=== PATIENT | male | born 1970 | race American Indian/Alaskan Native ===

== ENCOUNTER 2018-10-31 00:10 | Inpatient (IN) | payer MEDICAID, OTHER ==
--- NOTE | 2018-10-31 00:22 | Emergency Department Report ---
HPI - General Time Seen by Provider: 10/31/18 00:20 - HPI HPI: 48-year-old often Turkmen male presents to the emergency department, driving himself in to be seen, with complaint of difficulty with speech. The patient says that started about 15 minutes prior to arrival. The patient drove himself in and came to triage. He is diaphoretic with some difficulty speaking and a left-sided facial droop. He has a past medical history of congestive heart failure. He did not take anything for his symptoms prior to arrival. ED Past Medical Hx - Past Medical History Hx Hypertension: Yes Hx Congestive Heart Failure: Yes - Social History Smoking Status: Never Smoker Substance Use Type: Alcohol - Medications Home Medications: Home Medications Medication Instructions Recorded Confirmed Last Taken Type Furosemide [Lasix] 40 mg PO BID 10/31/18 10/31/18 Unknown History ED Review of Systems ROS: Stated complaint: POSS STROKE Other details as noted in HPI Comment: All other systems reviewed and negative Constitutional: diaphoresis. denies: chills, fever Eyes: denies: eye pain, vision change ENT: denies: ear pain, throat pain Respiratory: denies: cough, shortness of breath Cardiovascular: denies: chest pain, palpitations Gastrointestinal: denies: abdominal pain, vomiting Genitourinary: denies: urgency, dysuria Musculoskeletal: denies: back pain, arthralgia Skin: denies: rash, lesions Neurological: other (slurred speech). denies: weakness Physical Exam - Physical Exam Vital Signs: Vital Signs 10/31/18 00:12 Pulse Rate 104 H Blood Pressure 166/109 O2 Sat by Pulse 94 Oximetry Physical Exam: GENERAL: The patient is well-developed well-nourished. HEENT: Normocephalic. Atraumatic. Patient has moist mucous membranes. EYES: Extraocular motions are intact. Pupils are equal and reactive to light bilaterally. NECK: Supple. Trachea is midline. CHEST/LUNGS: Clear to auscultation. There is no respiratory distress noted. HEART/CARDIOVASCULAR: Regular. There is no tachycardia. There is no obvious murmur. ABDOMEN: Abdomen is soft, nontender. Patient has normal bowel sounds. Morbidly obese habitus. SKIN: Patient is diaphoretic. NEURO: The patient is awake, alert, and oriented. The patient is cooperative. No pronator drift or dysmetria. Patient has some mild dysarthria. There is a left-sided nasolabial paresis. MUSCULOSKELETAL: There is no tenderness or deformity. There is no limitation range of motion. There is no evidence of acute injury. ED Course Vital Signs 10/31/18 00:12 Pulse Rate 104 H Blood Pressure 166/109 O2 Sat by Pulse 94 Oximetry - Consultations Consultation #1: I spoke with the neurologist on-call for [facility] for the stroke team, Dr. Bandar De Paz. While we are unable to send the CT images to the on-site radiologist, we are able to send the images to regional PACS where Dr. De Paz was able to take a look at the images. He felt the patient might have a questionable subacute right lacunar caudate infarct. He does not see any acute bleed or any signs of any large vessel occlusion. He felt that the patient's NIH score is low and his symptoms are mild with the facial droop and dysarthria, and does not recommend TPA to be given. He also does not recommend any emergent CT angiography. She feels that the patient should be evaluated for other etiology/conditions and could have an MRI in the morning. 10/31/18 00:38 Consultation #2: 10/31/18 00:44 I spoke with the telemedicine neurologist, Dr. Aburto, who is going to see the patient as well by pvc monitor. 10/31/18 01:22 Patient was seen by Dr. Aburto who says that the patient's symptoms have improved and the patient himself says he is feeling better and back towards his baseline. This appears more consistent with a TIA. He still recommends that the patient get admitted for further evaluation. ED Medical Decision Making - Lab Data Result diagrams: 10/31/18 00:30 10/31/18 00:30 - EKG Data -: EKG Interpreted by Me EKG shows normal: sinus rhythm, axis (left axis deviation), intervals, QRS complexes, ST-T waves (T-wave inversions to the septal leads, flattening of the T waves to the inferior leads) Rate: normal - EKG Data When compared to previous EKG there are: no significant change Interpretation: unchanged when compared t (09/13/18) - Radiology Data Radiology results: report reviewed, image reviewed interpreted by me: Chest x-ray does not show any pneumothorax, pleural effusion, pneumonia or obvious focal consolidation.. Cardiomegaly. PROCEDURE: CT HEAD/BRAIN WO CON TECHNIQUE: Computerized tomography of the head was performed without contrast material. HISTORY: neuro deficits lt; 6hrs or sx present upon awakening COMPARISON: No prior studies are available for comparison. FINDINGS: Skull and scalp: Normal. Paranasal sinuses: Normal. Ventricles and subarachnoid spaces: Normal. Cerebrum: No evidence of hemorrhage, acute infarction or mass . Cerebellum and brainstem: No evidence of hemorrhage, acute infarction or mass. Vasculature: Normal. Comments: None. IMPRESSION: There is no evidence an acute intracranial process. Transcribed By: [facility] Dictated By: THIAGO WEST MD Electronically Authenticated By: THIAGO WEST MD Signed Date/Time: 10/31/18 005 - Medical Decision Making Patient presents to the emergency department with some acute dysarthria and the patient was found to have a left-sided facial droop. CT scan of the head was done that eventually resulted as negative for any acute bleed, shift, mass, ischemia. There was a delay at first obtaining the CT to the radiology service so I spoke with a neurologist at [facility], Dr. Bandar De Paz, who did not feel that the patient required TPA for transfer to their facility. Shortly after this, I also spoke with the telemedicine neurologist, Dr. Aburto, who saw the patient as well and found the patient have improved symptoms and it now seems that the patient had a TIA. He also recommends admission for MRI and further evaluation. Patient's labs have been unremarkable. He does have an elevated proBNP patient has no complaints of any chest pain or shortness of breath and the chest x-ray did not show any pleural effusions or signs of decompensated heart failure. Patient was given a dose of aspirin. All the labs and imaging results as well as the plan for admission, were discussed with the patient and he understands and agrees to the plan. - Differential Diagnosis CVA, TIA, alcohol intoxication, hypoglycemia Critical Care Time: Yes Critical care time in (mins) excluding proc time.: 35 Critical care attestation.: If time is entered above; I have spent that time in minutes in the direct care of this critically ill patient, excluding procedure time. Critical care time was spent on this patient and during his initial evaluation, multiple re- evaluations, ordering interpretation of labs and imaging, discussion with 2 different neurology services. Critical Care Time: 35 minutes ED Disposition Clinical Impression: TIA (transient ischemic attack) Hypertension Qualifiers: Hypertension type: essential hypertension Qualified Code(s): I10 - Essential (primary) hypertension Disposition: OP ADMIT IP TO THIS HOSP Is pt being admited?: Yes Condition: Serious Instructions: Hypertension (ED) Referrals: TATE MUSE MD [Primary Care Provider] - 3-5 Days Time of Disposition: 01:35 - Assessment Assessment Interval: Baseline - Level of Consciousness 1a. Level of Consciousness: alert/keenly responsive - LOC Questions 1b. LOC Questions: answers both correctly - LOC Command 1c. LOC Commands: performs tasks correctly - Best Gaze 2. Best Gaze: normal - Visual 3. Visual: no visual loss - Facial Palsy 4. Facial Palsy: partial paralysis - Motor Arm 5b. Motor Arm Right: no drift 5a. Motor Arm Left: no drift - Motor Leg 6b. Motor Leg Right: no drift 6a. Motor Leg Left: no drift - Limb Ataxia 7. Limb Ataxia: absent - Sensory 8. Sensory: normal - Best Language 9. Best Language: mild/moderate aphasia - Dysarthria 10. Dysarthria: mild/moderate dysarthria - Extinction and Inattention 11. Extinction/Inattention: no abnormality - Scoring Total Score: 4 Stroke Severity: Minor Stroke
[2018-10-31] MEDS ORDERED: ACTIVASE ONE (00:27)
[2018-10-31 00:45] LABS: Basophils # (Auto) 0.1 K/mm3 (0.0-0.1); Basophils % (Auto) 0.8 % (0.0-1.8); Eosinophils # (Auto) 0.2 K/mm3 (0.0-0.4); Eosinophils % (Auto) 2.8 % (0.0-4.3); Hematocrit 43.9 % (35.5-45.6); Hemoglobin 14.2 gm/dl (11.8-15.2); Lymphocytes # (Auto) 1.7 K/mm3 (1.2-5.4); Lymphocytes % (Auto) 23.7 % (13.4-35.0); Mean Corpuscular HGB Conc 32 % (32-34); Mean Corpuscular Volume 84 fl (84-94); Monocytes # (Auto) 0.5 K/mm3 (0.0-0.8); Monocytes % (Auto) 7.7 % (0.0-7.3); Platelet Count 272 K/mm3 (140-440); Red Cell Distribution Width 16.5 % (13.2-15.2)
--- NOTE | 2018-10-31 00:53 | Cat Scan Report ---
FINAL REPORT PROCEDURE: CT HEAD/BRAIN WO CON TECHNIQUE: Computerized tomography of the head was performed without contrast material. HISTORY: neuro deficits <6hrs or sx present upon awakening COMPARISON: No prior studies are available for comparison. FINDINGS: Skull and scalp: Normal. Paranasal sinuses: Normal. Ventricles and subarachnoid spaces: Normal. Cerebrum: No evidence of hemorrhage, acute infarction or mass . Cerebellum and brainstem: No evidence of hemorrhage, acute infarction or mass. Vasculature: Normal. Comments: None. IMPRESSION: There is no evidence an acute intracranial process.
[2018-10-31 00:56] LABS: INR 1.05 (0.87-1.13)
[2018-10-31 00:57] LABS: Partial Thromboplastin Time 28.7 Sec. (24.2-36.6); Thrombin Time 16.4 Sec. (15.1-19.6)
[2018-10-31] MEDS ORDERED: BABY ASPIRIN PO ONE (00:58)
[2018-10-31 00:59] LABS: BUN/Creatinine Ratio 21; Blood Urea Nitrogen 29 mg/dL (9-20); Calcium 8.3 mg/dL (8.4-10.2); Hemolysis Index 17
--- NOTE | 2018-10-31 01:28 | XRay Report ---
FINAL REPORT PROCEDURE: XR CHEST 1V AP TECHNIQUE: Chest radiograph anteroposterior view. CPT 18733 HISTORY: weakness COMPARISON: 09/13/2018 FINDINGS: Heart: Heart size is enlarged but stable. Mediastinum/Vessels: Normal. Lungs/Pleural space: Normal. Bony thorax: No acute osseous abnormality. Life support devices: None. IMPRESSION: There is no evidence of acute infiltrate or effusion. Stable cardiomegaly.
[2018-10-31] MEDS ORDERED: SODIUM CHLORIDE FLUSH SYRINGE 10 ML IV PRN (02:10)
[2018-10-31] MEDS ORDERED: MILK OF MAGNESIA PO PRN (02:10)
[2018-10-31] MEDS ORDERED: DULCOLAX PR PRN (02:10)
[2018-10-31] MEDS ORDERED: TYLENOL PO PRN (02:10)
[2018-10-31] MEDS ORDERED: REGLAN PO PRN (02:10)
[2018-10-31] MEDS ORDERED: ZOFRAN IV PRN (02:10)
--- NOTE | 2018-10-31 02:24 | History and Physical Report ---
History of Present Illness Date of examination: 10/31/18 History of present illness: 48-year-old man with a history of hypertension, CHF class emergency room with complaint of not being able to talk. The symptoms happen while he was at the club. He drove himself to the emergency room and 45 minutes later he was able t o sleep. While he was in the emergency room, he is right hand became weak. He has not taken any medications in 3 weeks Review of systems Constitutional: no weight loss, chills, fever Ears, eyes, nose, mouth and throat: no nasal congestion, no nasal discharge, no sinus pressure, no vision change, no red eye. Neck: No neck pain or rigidity. Cardiovascular: no palpitations, chest pain Respiratory: no cough, shortness of breath Gastrointestinal: no hematochezia, abdominal pain Genitourinary : no frequency , no hematuria Musculoskeletal: no joint swelling or muscle ache Integumentary: no rash, no pruritis Neurological: no parathesias Endocrine: no cold or heat intolerance, no polyuria or polydipsia Hematologic/Lymphatic: no easy bruising, no easy bleeding, no gland swelling Allergic/Immunologic: no urticaria, no angioedema. PAST MEDICAL HISTORY: hypertension, CHF PAST SURGICAL HISTORY: leg surgery SOCIAL HISTORY: + alcohol, no drugs, tobacco FAMILY HISTORY: Hypertension Medications and Allergies Allergies Allergy/AdvReac Type Severity Reaction Status Date / Time No Known Allergies Allergy Verified 09/13/18 16:08 Home Medications Medication Instructions Recorded Confirmed Last Taken Type Furosemide [Lasix] 40 mg PO BID 10/31/18 10/31/18 Unknown History Active Meds: Active Medications Acetaminophen (Tylenol) 650 mg PO Q4H PRN PRN Reason: Pain, Mild (1-3) Aspirin (Aspirin) 325 mg PO QDAY SINDI Atorvastatin Calcium (Lipitor) 40 mg PO QHS SINDI Bisacodyl (Dulcolax) 10 mg FL QDAY PRN PRN Reason: Constipation Furosemide (Lasix) 40 mg PO QDAY SINDI Magnesium Hydroxide (Milk Of Magnesia) 30 ml PO Q4H PRN PRN Reason: Constipation Metoclopramide HCl (Reglan) 10 mg PO Q6H PRN PRN Reason: Nausea And Vomiting Ondansetron HCl (Zofran) 4 mg IV Q8H PRN PRN Reason: Nausea And Vomiting Sodium Chloride (Sodium Chloride Flush Syringe 10 Ml) 10 ml INJ PRN PRN PRN Reason: LINE FLUSH Exam - Physical Exam Narrative exam: General Apperance: The patient lying in bed, breathing comfortable HEENT: Normocephalic, atraumatic. Pupils equally round and reactive to light, EOMI, no sclericterus or JVD or thyromegaly or nodule. , no carotid bruit, mucous membranes moist, no exudate or erythema Heart: S1-S2, regular is rhythm Lungs: Clear to auscultation bilaterally, breathing comfortable Abdomen: Positive bowel sounds, soft, nontender, nondistended, no organomegaly Extremities: + edema, no cyanosis clubbing Skin: no rash, nodule, warm and dry Neuro: cranial nerves 2-12 intact, speech is fluent, LUE 4/5, no sensory intact - Constitutional Vitals: Temp Pulse Resp BP Pulse Ox 98 F 95 H 26 H 151/76 98 10/31/18 00:38 10/31/18 01:15 10/31/18 01:15 10/31/18 01:15 10/31/18 01:15 Results - Labs CBC & Chem 7: 10/31/18 00:30 10/31/18 00:30 Labs: Abnormal lab results 10/31/18 10/31/18 10/31/18 Range/Units 00:30 00:30 00:30 RBC 5.20 H (3.65-5.03) M/mm3 MCH 27 L (28-32) pg RDW 16.5 H (13.2-15.2) % [place] % (Auto) 7.7 H (0.0-7.3) % Carbon Dioxide 19 L (22-30) mmol/L BUN 29 H (9-20) mg/dL Glucose 118 H (75-100) mg/dL Calcium 8.3 L (8.4-10.2) mg/dL NT-Pro-B Natriuret Pep 4767 H (0-450) pg/mL Plasma/Serum Alcohol (0-0.07) % 10/31/18 Range/Units 00:30 RBC (3.65-5.03) M/mm3 MCH (28-32) pg RDW (13.2-15.2) % [place] % (Auto) (0.0-7.3) % Carbon Dioxide (22-30) mmol/L BUN (9-20) mg/dL Glucose (75-100) mg/dL Calcium (8.4-10.2) mg/dL NT-Pro-B Natriuret Pep (0-450) pg/mL Plasma/Serum Alcohol 0.16 H (0-0.07) % - Imaging and Cardiology Chest x-ray: report reviewed CT Scan - head: report reviewed Assessment and Plan Assessment Acute CVA Hypertension CHF, stable Plan Admit to medicine Obtain MRI of the head and neck, echo Do neurochecks, swallow screen Start aspirin, statin [facility] neurology, physical and occupational therapy Start Lasix, DVT prophylaxis
[2018-10-31] MEDS: APRESOLINE IV PRN ×3 (03:51→14:30)
[2018-10-31] MEDS ORDERED: LASIX PO SCH (10:00)
[2018-10-31] MEDS: ASPIRIN PO SCH (10:00)
--- NOTE | 2018-10-31 10:34 | Progress Note ---
Subjective Date of service: 10/31/18 Interval history: see my extensive note on this patient there is negative CT see blood alcohol level this could well explain slurred speech the CHF being assessed can not rule out TIA at thi point Objective - Vital Sign Vital Signs - 12hr 10/31/18 10/31/18 10/31/18 00:12 00:30 00:38 Temperature 98 F Pulse Rate 104 H 98 H 104 H Respiratory 27 H 20 Rate Blood Pressure 166/109 140/98 Blood Pressure 166/109 [Left] O2 Sat by Pulse 94 96 94 Oximetry 10/31/18 10/31/18 10/31/18 00:45 01:01 01:15 Temperature Pulse Rate 94 H 90 95 H Respiratory 14 18 26 H Rate Blood Pressure 142/86 151/76 151/76 Blood Pressure [Left] O2 Sat by Pulse 95 95 98 Oximetry 10/31/18 10/31/18 10/31/18 01:31 02:00 02:30 Temperature Pulse Rate 93 H 90 87 Respiratory 20 31 H 27 H Rate Blood Pressure 167/117 148/106 149/105 Blood Pressure [Left] O2 Sat by Pulse 99 93 96 Oximetry 10/31/18 10/31/18 10/31/18 03:00 03:30 03:51 Temperature Pulse Rate 85 87 87 Respiratory 25 H 26 H Rate Blood Pressure 147/108 159/116 159/116 Blood Pressure [Left] O2 Sat by Pulse 97 97 Oximetry 10/31/18 10/31/18 10/31/18 04:00 04:04 04:11 Temperature Pulse Rate 89 90 92 H Respiratory 30 H 30 H Rate Blood Pressure 148/103 148/103 Blood Pressure [Left] O2 Sat by Pulse 96 99 Oximetry 10/31/18 10/31/18 04:30 08:17 Temperature 98.1 F 97.6 F Pulse Rate 90 90 Respiratory 16 20 Rate Blood Pressure 165/117 165/112 Blood Pressure [Left] O2 Sat by Pulse 99 99 Oximetry - Laboratory Findings CBC and BMP: 10/31/18 00:30 10/31/18 00:30 Abnormal Lab Findings: Abnormal Labs 10/31/18 10/31/18 10/31/18 00:30 00:30 00:30 RBC 5.20 H MCH 27 L RDW 16.5 H [place] % (Auto) 7.7 H Carbon Dioxide 19 L BUN 29 H Glucose 118 H Calcium 8.3 L NT-Pro-B Natriuret Pep 4767 H Plasma/Serum Alcohol 10/31/18 00:30 RBC MCH RDW [place] % (Auto) Carbon Dioxide BUN Glucose Calcium NT-Pro-B Natriuret Pep Plasma/Serum Alcohol 0.16 H
--- NOTE | 2018-10-31 10:56 | Consultation ---
HISTORY OF PRESENT ILLNESS: This is a 48-year-old black male that presented to the Emergency Room of [facility] after driving himself to be seen. He presents with complaints of difficulty with speaking. The patient had onset of symptoms about 50 minutes prior to admission. He has a prior medical history of congestive heart failure. When he presented to the hospital, his blood pressure was 166/109 and he was noted to be on initial examination, the EKG was normal. The patient had a CT scan of the head, which showed no acute. DICTATION ENDS HERE. JOB# [id number] ENA/MACHELLE
[2018-10-31] MEDS: NORVASC PO SCH (17:07)
[2018-10-31] MEDS: ZESTRIL PO SCH (17:07)
[2018-11-01 04:25] LABS: Chol/HDL Ratio 3.81 %
--- NOTE | 2018-11-01 09:39 | Progress Note ---
Subjective Date of service: 11/01/18 Interval history: PATIENT IS BETTER NO MORE SLURRED SPEECH THE echo Results are noted no clot mri is pending explained the dx to the patient and advised better bp control be pursuerd Objective - Vital Sign Vital Signs - 12hr 10/31/18 11/01/18 11/01/18 23:11 01:00 04:01 Temperature 97.5 F L 97.4 F L Pulse Rate 89 91 H 84 Respiratory 16 14 Rate Blood Pressure 124/80 141/86 O2 Sat by Pulse 98 95 Oximetry 11/01/18 04:11 Temperature Pulse Rate 82 Respiratory Rate Blood Pressure O2 Sat by Pulse Oximetry - Laboratory Findings CBC and BMP: 10/31/18 00:30 10/31/18 00:30 Abnormal Lab Findings: Abnormal Labs 10/31/18 10/31/18 10/31/18 00:30 00:30 00:30 RBC 5.20 H MCH 27 L RDW 16.5 H [place] % (Auto) 7.7 H Carbon Dioxide 19 L BUN 29 H Glucose 118 H Calcium 8.3 L NT-Pro-B Natriuret Pep 4767 H HDL Cholesterol Plasma/Serum Alcohol 10/31/18 11/01/18 00:30 02:48 RBC MCH RDW [place] % (Auto) Carbon Dioxide BUN Glucose Calcium NT-Pro-B Natriuret Pep HDL Cholesterol 37 L Plasma/Serum Alcohol 0.16 H
--- NOTE | 2018-11-01 11:02 | Progress Note ---
Assessment and Plan Assessment and plan: 48-year-old man who presents with slurred speech and transient left upper extremity weakness. The patient had been in a nightclub drinking, when his symptoms started. He drove himself to the ED because his speech was slurred and he had intermittent weakness in his left arm. All symptoms have now resolved. The patient admitted that he had not taken any of his medications for 3 days Plan Neurologist consult appreciated, awaiting MRI Optimize blood pressure medications, patient was on adherence, has been counseled on improved adherence to blood pressure medications -Obtain stress test, patient denies chest pain. This is for cardiac risk stratification given CHF, cont lasix -Follow-up carotid Dopplers -Alcohol intoxication may have contributed to slurred speech Diagnoses TIA? Alcohol intoxication Hypertensive urgency My adherence to medications CHF, EF 45% History Interval history: Review of systems Constitutional: No fevers, no malaise, no joint pains CVS: No chest pain, no orthopnea, no dyspnea on exertion, no pedal edema GI: No abdominal pain, no diarrhea, no vomiting, no constipation Respiratory: No shortness of breath, no wheezing, no coughing Hospitalist Physical - Physical exam Narrative exam: General.: Appears well, no distress, nontoxic HEENT: Moist mucous membranes, extraocular muscles intact, no lymphadenopathy Neck: supple Cardiac: S1-S2 heard Lungs: clear to auscultation bilaterally Abdomen: soft , nontender, nondistended, bowel sounds positive Extremities: bipedal edema Skin: no rash or lesions Neurologic: no gross focal deficits Psych: calm, and cooperative - Constitutional Vitals: Temp Pulse Resp BP Pulse Ox 97.4 F L 82 14 141/86 96 11/01/18 04:01 11/01/18 04:11 11/01/18 04:01 11/01/18 04:01 11/01/18 10:00 Results - Labs CBC & Chem 7: 10/31/18 00:30 10/31/18 00:30 Labs: Laboratory Last Values WBC 7.0 K/mm3 (4.5-11.0) 10/31/18 00:30 RBC 5.20 M/mm3 (3.65-5.03) H 10/31/18 00:30 Hgb 14.2 gm/dl (11.8-15.2) 10/31/18 00:30 Hct 43.9 % (35.5-45.6) 10/31/18 00:30 MCV 84 fl (84-94) 10/31/18 00:30 MCH 27 pg (28-32) L 10/31/18 00:30 MCHC 32 % (32-34) 10/31/18 00:30 RDW 16.5 % (13.2-15.2) H 10/31/18 00:30 Plt Count 272 K/mm3 (140-440) 10/31/18 00:30 Lymph % (Auto) 23.7 % (13.4-35.0) 10/31/18 00:30 [place] % (Auto) 7.7 % (0.0-7.3) H 10/31/18 00:30 Eos % (Auto) 2.8 % (0.0-4.3) 10/31/18 00:30 Baso % (Auto) 0.8 % (0.0-1.8) 10/31/18 00:30 Lymph # 1.7 K/mm3 (1.2-5.4) 10/31/18 00:30 [place] # 0.5 K/mm3 (0.0-0.8) 10/31/18 00:30 Eos # 0.2 K/mm3 (0.0-0.4) 10/31/18 00:30 Baso # 0.1 K/mm3 (0.0-0.1) 10/31/18 00:30 Seg Neutrophils % 65.0 % (40.0-70.0) 10/31/18 00:30 Seg Neutrophils # 4.6 K/mm3 (1.8-7.7) 10/31/18 00:30 PT 14.1 Sec. (12.2-14.9) 10/31/18 00:30 INR 1.05 (0.87-1.13) 10/31/18 00:30 APTT 28.7 Sec. (24.2-36.6) 10/31/18 00:30 Thrombin Time 16.4 Sec. (15.1-19.6) 10/31/18 00:30 Sodium 138 mmol/L (137-145) 10/31/18 00:30 Potassium 3.9 mmol/L (3.6-5.0) 10/31/18 00:30 Chloride 105.5 mmol/L (98-107) 10/31/18 00:30 Carbon Dioxide 19 mmol/L (22-30) L 10/31/18 00:30 Anion Gap 17 mmol/L 10/31/18 00:30 BUN 29 mg/dL (9-20) H 10/31/18 00:30 Creatinine 1.4 mg/dL (0.8-1.5) 10/31/18 00:30 Estimated GFR > 60 ml/min 10/31/18 00:30 BUN/Creatinine Ratio 21 % 10/31/18 00:30 Glucose 118 mg/dL (75-100) H 10/31/18 00:30 POC Glucose 93 (70-105) 10/31/18 00:18 Calcium 8.3 mg/dL (8.4-10.2) L 10/31/18 00:30 Troponin T < 0.010 ng/mL (0.00-0.029) 10/31/18 00:30 NT-Pro-B Natriuret Pep 4767 pg/mL (0-450) H 10/31/18 00:30 Triglycerides 99 mg/dL (2-149) 11/01/18 02:48 Cholesterol 141 mg/dL (50-199) 11/01/18 02:48 LDL Cholesterol Direct 101 mg/dL (50-130) 11/01/18 02:48 HDL Cholesterol 37 mg/dL (40-59) L 11/01/18 02:48 Cholesterol/HDL Ratio 3.81 % 11/01/18 02:48 Plasma/Serum Alcohol 0.16 % (0-0.07) H 10/31/18 00:30
[2018-11-01] MEDS: ASPIRIN PO SCH (13:15)
[2018-11-01] MEDS: NORVASC PO SCH (13:15)
[2018-11-01] MEDS: ZESTRIL PO SCH (13:17)
--- NOTE | 2018-11-01 18:05 | Vascular Lab Report ---
FINAL REPORT EXAM: VL CAROTID DUPLEX BILAT HISTORY: LUE weakness COMPARISON: None available. TECHNIQUE: Several real-time grayscale and color Doppler images were obtained. FINDINGS: On the right, peak systolic velocity within the common carotid artery 72 centimeters/second, internal carotid artery 60, external carotid artery 84. On the left, peak systolic velocity within the common carotid artery 75 centimeters/second, internal carotid artery 73, external carotid artery 42. Antegrade flow within the vertebral arteries. No calcified plaque demonstrated along the carotid vasc ulature. No focal stenosis or occlusion. IMPRESSION: Negative study. No hemodynamically significant plaque formation within the extracranial carotid vascu lature by velocity criteria or NASCET criteria.
[2018-11-01] MEDS: LASIX PO SCH (21:44)
[2018-11-02] MEDS ORDERED: LEXISCAN IV ONE (08:22)
--- NOTE | 2018-11-02 10:18 | Discharge Summary ---
Providers - Providers Date of Admission: 10/31/18 02:10 Attending physician: ALICIA BAUTISTA MD 10/31/18 Consult to Physician [CONS] Routine Comment: Consulting Provider: TATE BEATTY Physician Instructions: Reason For Exam: cva 10/31/18 02:10 Occupational Therapy Evaluate and Treat [CONS] Routine Comment: Reason For Exam: Neuro deficits Physical Therapy Evaluation and Treat [CONS] Routine Comment: Reason For Exam: Neuro deficits Primary care physician: TAET MUSE Hospitalization Condition: Serious Pertinent studies: MRI brain; Small patchy area of restricted diffusion seen posterior superior aspect right frontal lobe as described consistent with acute ischemic infarction Hospital course: 48-year-old man who presents with slurred speech and transient left upper extremity weakness. The patient had been in a nightclub drinking, when his symptoms started. He drove himself to the ED because his speech was slurred and he had intermittent weakness in his left arm. All symptoms have now resolved. The patient admitted that he had not taken any of his medications for 3 days Hospital course he was counseled about improved adherence to blood pressure medications -His echo showed decreased EF, he went on to have a stress test that was negative, he received cardiology consultation were agreed with the management -His medications were optimized for hypertension and CHF -MRI of brain was done and showed a small acute infarction. His medications were optimized for secondary prevention, he was started on aspirin and statin, and counseled on adherence to blood pressure medications Diagnoses Acute CVA Alcohol intoxication Hypertensive urgency non adherence to medications CHF, EF 45% Disposition: DC-01 TO HOME OR SELFCARE Time spent for discharge: 44 mins Core Measure Documentation - Palliative Care Palliative Care/ Comfort Measures: Not Applicable - Core Measures Any of the following diagnoses?: heart failure, stroke - Heart Failure Discharge Requirements FLASH/ARB for LVSD if EF <40%: Yes Beta ganesh at discharge: Yes - Stroke Discharge Requirements Statin for LDL = or >70 mg/dl on DC: Yes Anticoag for atrial fib/atrial flutter: Not Applicable Antithrombotic for ischemic stroke: Yes Exam - Constitutional Vitals: Temp Pulse Resp BP Pulse Ox 97.9 F 86 20 146/101 97 11/02/18 08:03 11/02/18 08:03 11/02/18 08:03 11/02/18 08:03 11/02/18 08:03 General appearance: Present: no acute distress, well-nourished - EENT Eyes: Present: PERRL ENT: hearing intact, clear oral mucosa - Neck Neck: Present: supple, normal ROM - Respiratory Respiratory effort: normal Respiratory: bilateral: CTA - Cardiovascular Heart Sounds: Present: S1 & S2. Absent: rub, click - Extremities Extremities: pulses symmetrical, No edema Peripheral Pulses: within normal limits - Abdominal General gastrointestinal: Present: soft, non-tender, non-distended, normal bowel sounds Male genitourinary: Present: normal - Integumentary Integumentary: Present: clear, warm, dry - Musculoskeletal Musculoskeletal: gait normal, strength equal bilaterally - Psychiatric Psychiatric: appropriate mood/affect, intact judgment & insight - Neurologic Neurologic: CNII-XII intact, moves all extremities Plan Follow up with: TATE MUSE MD [Primary Care Provider] - 3-5 Days Prescriptions: Pravastatin [Pravachol] 20 mg PO QHS #30 tablet amLODIPine [Norvasc] 10 mg PO QDAY #30 tablet Aspirin EC [Aspirin Enteric Coated TAB] 81 mg PO QDAY #30 tablet. Carvedilol 12.5 mg PO BID #60 tablet Furosemide [Lasix TAB] 40 mg PO BID #60 tablet Lisinopril [Zestril TAB] 40 mg PO QDAY #30 tablet
[2018-11-02] MEDS: LASIX PO SCH ×2 (11:22→21:55)
[2018-11-02] MEDS: ASPIRIN PO SCH (11:22)
[2018-11-02] MEDS: ZESTRIL PO SCH (11:22)
[2018-11-02] MEDS: NORVASC PO SCH (11:23)
[2018-11-02] MEDS ORDERED: ATIVAN IV NR (12:30)
--- NOTE | 2018-11-02 17:23 | Treadmill Report ---
Pharmacologic myocardial perfusion imaging report. A 48-year-old gentleman was evaluated for chest pain. Baseline EKG showed sinus rhythm and minor nonspecific ST-T changes. The patient received 0.4 mg of IV regadenoson intravenously. The patient tolerated IV regadenoson well. No significant EKG changes from baseline. No significant arrhythmia noted. The patient received resting myocardial perfusion images with technetium pyrophosphate and subsequently after vasodilation with IV regadenoson myocardial perfusion images were obtained and stress gated images also were obtained. Stress myocardial perfusion images showed evidence of mild diffuse anterior wall defect, which is more or less noted also in the resting images similarly mild inferior defect was noted in the resting images, which were also noted in the rest images. Gated images showed dilated left ventricle with severe diffuse hypokinesis. Calculated left ventricular ejection fraction was found to be 27%. Transient ischemic dilation ratio was found to be 1.12. FINAL IMPRESSION: 1. The patient tolerated IV Lexiscan well with no EKG changes of chest pain. 2. Mild fixed anterior and inferior defects noted with no significant ischemia noted. 3. Dilated left ventricle with diffuse hypokinesis with calculated ejection fraction of 27% noted. 4. Considering low ejection fraction this study represents high risk for cardiovascular events. [facility]# [id number] ABBY/MACHELLE
--- NOTE | 2018-11-02 19:27 | Magnetic Resonance Report ---
FINAL REPORT PROCEDURE: MR BRAIN WO CON TECHNIQUE: Magnetic resonance imaging of the brain was performed without contrast material. HISTORY: stroke COMPARISON: Prior unenhanced CT scan of the brain 10/31/2018 FINDINGS: There is no evidence of intracranial hemorrhage. No parenchymal hemorrhage, mass lesions or mass effe ct are seen. There is a subtle patchy area of increased T2 signal visualized posteriorly superiorly i n the right frontal lobe. This shows bright patchy increased signal on the diffusion-weighted image a nd decreased signal on the ADC mapping sequence. This is best visualized on the diffusion-weighted im age 26 series 4 and adjacent images. The appearance is consistent with acute ischemic infarction. Thi s extends transversely approximately 1.8 centimeter and anterior to posterior approximately 1.2 centi meter. No other abnormal areas of restricted diffusion are seen. The ventricles are normal size and a re midline. No abnormal extra-axial fluid collections or masses are identified. Normal frances-white mat ter differentiation is otherwise visualized. The corpus callosum, the region of the pituitary fossa i n the foramina magnum show no abnormalities. Patchy mucosal disease seen in multiple trace mucosal thickening seen in the right and left maxillary sinuses. Paranasal sinuses otherwise are clear. Mastoid air cells are clear. Ethmoid air cells. IMPRESSION: Small patchy area of restricted diffusion seen posterior superior aspect right frontal lobe as descri bed consistent with acute ischemic infarction. No hemorrhage or mass effect is seen. MRI of the brain otherwise unremarkable. Critical value: I discussed these findings in detail with JOAQUIM Frias by phone conversation on 11/02/2018 at 7:22 p.m. Eastern standard time.
--- NOTE | 2018-11-02 19:34 | Magnetic Resonance Report ---
FINAL REPORT PROCEDURE: MR MRA/MRV HEAD WO CON TECHNIQUE: Axial 3-D [id number] MR angiography of the [place] and brain was performed. The source images were reconstructed in various views using maximum intensity projection. HISTORY: stroke COMPARISON: No prior studies are available for comparison. FINDINGS: Today's study is limited by motion artifact. Right vertebral artery is dominant, normal variant. Basilar artery is tortuous otherwise appears wide ly patent. Posterior cerebral arteries appear widely patent. The visualized internal carotid arteries and carotid siphons appear widely patent. The A1 segments and anterior cerebral arteries as well as the middle cerebral arteries appear patent. No high-grade areas of stenosis or occlusion are visualiz ed. No changes to suggest aneurysm or vascular malformation. IMPRESSION: Study is limited by motion artifact. The anterior and the posterior circulation appear intact.
--- NOTE | 2018-11-02 20:13 | Treadmill Report ---
SINGLE ISOTOPE DUAL STUDY MYOCARDIAL PERFUSION SCAN REFERRING PHYSICIAN: Albin Galloway M.D., hospitalist. Seen and dictated by Dr. Amarjit Cerratomabel. The patient received 10 mCi of technetium 99m Myoview intravenously. Resting myocardial perfusion scan images were done. After the administration of intravenous Lexiscan, the patient underwent stress myocardial perfusion scan images. The post-stress images revealed mildly dilated left ventricle. Mild transient ischemic dilatation of the left ventricle was seen in the stress images (TID ratio of 1.12). A small mild mid inferior wall perfusion defect was seen. Resting images again revealed perfusion defect seen in the stress images. Gated study revealed mildly dilated left ventricle with severely decreased left ventricular ejection fraction of 27%. CONCLUSION: 1. Mildly dilated left ventricle. 2. Mild transient ischemic dilatation of left ventricle and the stress images with TID ratio of 1.12. 3. Small mild fixed mid inferior wall perfusion defect. 4. Severe global left ventricular systolic dysfunction with LVEF around 27% (dilated cardiomyopathy). JOB# [id number] [facility]
[2018-11-03] MEDS: APRESOLINE IV PRN (01:09)
[2018-11-03 08:48] VITALS: BP 150/106
[2018-11-03] MEDS: LASIX PO SCH (09:47)
[2018-11-03] MEDS: NORVASC PO SCH (09:47)
[2018-11-03] MEDS: ASPIRIN PO SCH (09:47)
[2018-11-03] MEDS: ZESTRIL PO SCH (09:47)
--- NOTE | 2018-11-03 10:18 | Progress Note ---
Assessment and Plan Assessment and plan: 48-year-old man who presents with slurred speech and transient left upper extremity weakness. The patient had been in a nightclub drinking, when his symptoms started. He drove himself to the ED because his speech was slurred and he had intermittent weakness in his left arm. All symptoms have now resolved. The patient admitted that he had not taken any of his medications for 3 days Plan Neurologist consult appreciated, awaiting MRI Optimize blood pressure medications, patient was on adherence, has been counseled on improved adherence to blood pressure medications -Obtain stress test, patient denies chest pain. This is for cardiac risk stratification given CHF, cont lasix -Follow-up carotid Dopplers -Alcohol intoxication may have contributed to slurred speech Diagnoses TIA? Alcohol intoxication Hypertensive urgency My adherence to medications CHF, EF 45% History Interval history: Review of systems Constitutional: No fevers, no malaise, no joint pains CVS: No chest pain, no orthopnea, no dyspnea on exertion, no pedal edema GI: No abdominal pain, no diarrhea, no vomiting, no constipation Respiratory: No shortness of breath, no wheezing, no coughing Hospitalist Physical - Physical exam Narrative exam: General.: Appears well, no distress, nontoxic HEENT: Moist mucous membranes, extraocular muscles intact, no lymphadenopathy Neck: supple Cardiac: S1-S2 heard Lungs: clear to auscultation bilaterally Abdomen: soft , nontender, nondistended, bowel sounds positive Extremities: bipedal edema Skin: no rash or lesions Neurologic: no gross focal deficits Psych: calm, and cooperative - Constitutional Vitals: Temp Pulse Resp BP Pulse Ox 98.4 F 89 20 150/106 97 11/03/18 08:47 11/03/18 08:47 11/03/18 08:47 11/03/18 08:47 11/03/18 08:47 General appearance: Present: no acute distress, well-nourished Results - Labs CBC & Chem 7: 10/31/18 00:30 10/31/18 00:30 Labs: Laboratory Last Values WBC 7.0 K/mm3 (4.5-11.0) 10/31/18 00:30 RBC 5.20 M/mm3 (3.65-5.03) H 10/31/18 00:30 Hgb 14.2 gm/dl (11.8-15.2) 10/31/18 00:30 Hct 43.9 % (35.5-45.6) 10/31/18 00:30 MCV 84 fl (84-94) 10/31/18 00:30 MCH 27 pg (28-32) L 10/31/18 00:30 MCHC 32 % (32-34) 10/31/18 00:30 RDW 16.5 % (13.2-15.2) H 10/31/18 00:30 Plt Count 272 K/mm3 (140-440) 10/31/18 00:30 Lymph % (Auto) 23.7 % (13.4-35.0) 10/31/18 00:30 [place] % (Auto) 7.7 % (0.0-7.3) H 10/31/18 00:30 Eos % (Auto) 2.8 % (0.0-4.3) 10/31/18 00:30 Baso % (Auto) 0.8 % (0.0-1.8) 10/31/18 00:30 Lymph # 1.7 K/mm3 (1.2-5.4) 10/31/18 00:30 [place] # 0.5 K/mm3 (0.0-0.8) 10/31/18 00:30 Eos # 0.2 K/mm3 (0.0-0.4) 10/31/18 00:30 Baso # 0.1 K/mm3 (0.0-0.1) 10/31/18 00:30 Seg Neutrophils % 65.0 % (40.0-70.0) 10/31/18 00:30 Seg Neutrophils # 4.6 K/mm3 (1.8-7.7) 10/31/18 00:30 PT 14.1 Sec. (12.2-14.9) 10/31/18 00:30 INR 1.05 (0.87-1.13) 10/31/18 00:30 APTT 28.7 Sec. (24.2-36.6) 10/31/18 00:30 Thrombin Time 16.4 Sec. (15.1-19.6) 10/31/18 00:30 Sodium 138 mmol/L (137-145) 10/31/18 00:30 Potassium 3.9 mmol/L (3.6-5.0) 10/31/18 00:30 Chloride 105.5 mmol/L (98-107) 10/31/18 00:30 Carbon Dioxide 19 mmol/L (22-30) L 10/31/18 00:30 Anion Gap 17 mmol/L 10/31/18 00:30 BUN 29 mg/dL (9-20) H 10/31/18 00:30 Creatinine 1.4 mg/dL (0.8-1.5) 10/31/18 00:30 Estimated GFR > 60 ml/min 10/31/18 00:30 BUN/Creatinine Ratio 21 % 10/31/18 00:30 Glucose 118 mg/dL (75-100) H 10/31/18 00:30 POC Glucose 93 (70-105) 10/31/18 00:18 Calcium 8.3 mg/dL (8.4-10.2) L 10/31/18 00:30 Troponin T < 0.010 ng/mL (0.00-0.029) 11/02/18 06:20 NT-Pro-B Natriuret Pep 4767 pg/mL (0-450) H 10/31/18 00:30 Triglycerides 99 mg/dL (2-149) 11/01/18 02:48 Cholesterol 141 mg/dL (50-199) 11/01/18 02:48 LDL Cholesterol Direct 101 mg/dL (50-130) 11/01/18 02:48 HDL Cholesterol 37 mg/dL (40-59) L 11/01/18 02:48 Cholesterol/HDL Ratio 3.81 % 11/01/18 02:48 Plasma/Serum Alcohol 0.16 % (0-0.07) H 10/31/18 00:30
== END 2018-11-03 13:51 | disposition home or self-care (01) | DRG 66 ==
LOC: ED 00:10 → 4A 02:10
PROVIDERS: ADMIT Internal Medicine; ATTEND Internal Medicine
DX: I63.9 Cerebral infarction, unspecified (principal); I50.9 Heart failure, unspecified; I11.0 Hypertensive heart disease with heart failure; I16.0 Hypertensive urgency; F10.929 Alcohol use, unspecified with intoxication, unspecified; Y90.0 Blood alcohol level of less than 20 mg/100 ml; G83.24 Monoplegia of upper limb affecting left nondominant side; R47.81 Slurred speech; Z82.49 Family history of ischemic heart disease and other diseases of the circulatory system; Z72.89 Other problems related to lifestyle; Z71.89 Other specified counseling
CPT/HCPCS: 36415; 70450; 70544; 70551; 71045; 78452; 80048; 80061; 80320; 82962; 83880; 84484; 85025; 85610; 85670; 85730; 93005; 93010; 93017; 93306; 93880; G0378; A9270-GY; A9502; G0480; J0360; J2060; J2785; J2997